=== PATIENT | male | born 1995 | race Two or more races ===

== ENCOUNTER 2019-06-11 01:31 | Emergency (ER) | payer OTHER ==
[~2019-06-11] VITALS: Ht 185.4 cm; Wt 95.0 kg
[2019-06-11 01:42] VITALS: BP 130/68
== END 2019-06-11 03:36 | disposition home or self-care (01) ==
LOC: ER 01:31
DX: S46.911A Strain of unspecified muscle, fascia and tendon at shoulder and upper arm level, right arm, initial encounter (principal); X58.XXXA Exposure to other specified factors, initial encounter; Y93.89 Activity, other specified; Y92.89 Other specified places as the place of occurrence of the external cause; Y99.8 Other external cause status
CPT/HCPCS: 99281